=== PATIENT | male | born 1950 | race Caucasian/White ===

== ENCOUNTER 2018-08-24 07:10 | Day surgery (SDC) | payer MEDICARE, BC ==
[~2018-08-24] VITALS: Ht 175.3 cm; Wt 82.0 kg
[~2018-08-24 07:10] MED LIST: ASPI-496 PO; ATOR-2 PO; LATA2.5D3 EACHEYE; LOSA25TA25 PO; SILD50TA PO
[2018-08-24] MEDS ORDERED: D5%-0.45% NACL 1,000 ML IV SCH ×2 (07:25→10:22)
[2018-08-24 07:28] VITALS: BP 117/72
[2018-08-24] MEDS ORDERED: LIDOCAINE-MPF 1%, 5ML ONE (08:04)
[2018-08-24] MEDS ORDERED: FENTANYL PF 100 MCG/2ML ONE (08:34)
[2018-08-24] MEDS ORDERED: NITROGLYCERIN 5 MG/ML, 10ML ONE (08:35)
[2018-08-24] MEDS ORDERED: MIDAZOLAM 1 MG/ML, 5ML ONE (08:35)
[2018-08-24] MEDS ORDERED: FLUMAZENIL 0.1 MG/1 ML, 5ML ONE (08:35)
[2018-08-24] MEDS ORDERED: HEPARIN 1,000 UNITS/ML, 10ML ONE (08:35)
[2018-08-24] MEDS ORDERED: PROTAMINE SULFATE 10 MG/ML, 25ML ONE (08:35)
[2018-08-24] MEDS ORDERED: NALOXONE 1 MG/ML, 2ML ONE (08:35)
[2018-08-24] MEDS ORDERED: VISIPAQUE 320MG/ML, 50ML BOTTLE ONE (12:00)
== END 2018-08-24 12:30 | disposition home or self-care (01) ==
LOC: OUT 07:10 → UNDOADMOB 10:22 → ORIP 10:22 → OUT 12:30
PROVIDERS: ATTEND Surgery
DX: I70.8 Atherosclerosis of other arteries (principal); I10 Essential (primary) hypertension; E78.5 Hyperlipidemia, unspecified; F17.210 Nicotine dependence, cigarettes, uncomplicated; Z98.890 Other specified postprocedural states; Z79.82 Long term (current) use of aspirin; Z72.89 Other problems related to lifestyle
CPT/HCPCS: 36140; 75710; 99156; 99157; C1751; C1760; C1769; C1894; J2250; J3010; Q9967; J1644; J2720; J2310

== ENCOUNTER → 2018-11-20 | Outpatient (CLI) | payer MEDICARE, BC ==
[2018-11-20 11:04] LABS: BASOPHILS # (AUTO) 0.03 x10^3/uL (0-0.1); BASOPHILS % (AUTO) 0 % (0-1); EOSINOPHILS # (AUTO) 0.16 x10^3/uL (0-0.4); EOSINOPHILS % (AUTO) 2 % (1-7); LYMPHOCYTES # (AUTO) 2.35 x10^3/uL (1-3.4); LYMPHOCYTES % (AUTO) 24 % (22-44); MD NO; MEAN CORPUSCULAR HEMOGLOBIN 33.8 pg (27.5-34.5); MEAN CORPUSCULAR HGB CONC 32.8 g/dL (33.2-36.2); MEAN CORPUSCULAR VOLUME 103.1 fL (81-97); MEAN PLATELET VOLUME 9.1 fL (7.4-10.4); MONOCYTES % (AUTO) 8 % (2-9); NEUTROPHILS # (AUTO) 6.55 x10^3/uL (1.8-6.8); NEUTROPHILS % (AUTO) 66 % (42-75); PLATELET COUNT 181 x10^3/uL (130-400); RED BLOOD COUNT 4.87 x10^6/uL (4.38-5.82); RED CELL DISTRIBUTION WIDTH 14.3 % (9.4-14.8)
[2018-11-20 11:10] LABS: CHLORIDE 115 mmol/L (98-107)
[2018-11-20 11:21] LABS: ALANINE AMINOTRANSFERASE 27 U/L (12-78); ALBUMIN 3.7 g/dL (3.4-5.0); ALKALINE PHOSPHATASE 60 U/L (45-117); ANION GAP 3 mmol/L (5-15); BILIRUBIN,TOTAL 0.8 mg/dL (0.2-1.0); CALCIUM 8.6 mg/dL (8.5-10.1); CREATININE 1.13 mg/dL (0.7-1.3); TOTAL PROTEIN 6.7 g/dL (6.4-8.2)
== END | disposition home or self-care (01) ==
LOC: STAR 09:36
PROVIDERS: ATTEND Surgery
DX: Z01.818 Encounter for other preprocedural examination (principal); I10 Essential (primary) hypertension; E78.5 Hyperlipidemia, unspecified
CPT/HCPCS: 36415; 71046; 80053; 85025; 93005